=== PATIENT | female | born 1975 | race Caucasian/White ===

== ENCOUNTER 2023-08-25 08:18 | Emergency (ER) | payer OTHER, SELFPAY ==
[2023-08-25 08:29] VITALS: BP 112/60; PULSE 58; RESP 16; TEMP 36.7; O2SAT 99
[2023-08-25 08:30] VITALS: BP 112/60; PULSE 58; RESP 16; TEMP 36.7; O2SAT 99
--- NOTE | 2023-08-25 08:39 | ED.WOUNDLAC ---
HPI - Wound/Laceration General Chief Complaint: Extremity Injury, Lower Stated Complaint: Left Foot Wound Time Seen by Provider: 08/25/23 08:45 Source: patient and RN notes reviewed Mode of arrival: ambulatory Limitations: no limitations History of Present Illness HPI narrative: 47-year-old female presents concern for a puncture wound on Thursday. She reports she tried on a shoe at issues door that had attack in it and punctured her foot. 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 She reports she has had a tetanus vaccination in the past, her last 1 was about 12 years ago. She denies any redness, swelling, pain, drainage from the puncture site. Related Data Home Medications Medication Instructions Recorded Confirmed No Home Medications 08/25/23 08/25/23 Allergies Allergy/AdvReac Type Severity Reaction Status Date / Time Sulfa (Sulfonamide Allergy Unknown Unknown Verified 08/25/23 08:30 Antibiotics) Review of Systems Review of Systems: CONSTITUTIONAL: Denies malaise, chills, sweats, or fever. SKIN: Reports puncture wound to the dorsal aspect of the left foot. Denies any surrounding tenderness, warmth, redness, swelling. MUSCULOSKELETAL: Denies muscle skeletal pain NEUROLOGIC: Denies numbness, weakness All systems reviewed & are unremarkable except as noted in HPI and below PMFSH Family History Family History (Updated 04/27/14 @ 12:29 by DOCTOR UNKNOWN) Mother Patient's mother is Social History Social History Smoking status: Never smoker Alcohol intake: current Comments At time of signature, agree with nursing past medical, surgical, social and family history. There is no relevant family history pertinent to the presenting complaint Exam Narrative: GENERAL: Well-appearing, well-nourished, and in no acute distress. HEAD: Normocephalic, atraumatic. EYES: PERRLA, conjunctivae clear ENT: Mucous membranes moist. NECK: Supple. No lymphadenopathy CHEST: Clear to auscultation. No respiratory distress. HEART: Regular rate and rhythm. SKIN: Warm, dry. Puncture wound noted to the dorsal aspect of left foot without surrounding erythema, induration, tenderness, warmth. No drainage noted NEURO: Alert and oriented x3. PSYCH: Normal mood and affect Course Course Emergency Course: Patient called her route clerk for advice on whether not to get the vaccine and has not her back. 48 hour window for vaccination will be up this afternoon. Discussed risks versus benefits of vaccination with patient has idiopathic thrombocytopenia purpura. Through shared decision making patient decided to get the tetanus vaccine. Patient is aware of, understands and agrees to treatment plan. Anticipatory guidance given. Patient agrees to follow-up as directed and is aware of reasons to seek care at the emergency department. Portions of this record may have been created with voice recognition software Level of Care: Express Care Visit Vital Signs Vital signs: Vital Signs Temperature 98.1 F 08/25/23 08:29 Pulse Rate 58 L 08/25/23 08:29 Respiratory Rate 16 08/25/23 08:29 Blood Pressure 112/60 08/25/23 08:29 Pulse Oximetry 99 08/25/23 08:29 Oxygen Delivery Room Air 08/25/23 08:29 Temperature 98.1 F 08/25/23 08:30 Pulse Rate 58 L 08/25/23 08:30 Respiratory Rate 16 08/25/23 08:30 Blood Pressure 112/60 08/25/23 08:30 Pulse Oximetry 99 08/25/23 08:30 Oxygen Delivery Room Air 08/25/23 08:30 Reviewed. MDM - Wound/Laceration MDM Narrative Medical decision making narrative: Wound explored for foreign body and copious irrigation provided with no evidence of FB. Discussed the potential of retained foreign body with the patient and signs/symptoms that should prompt the patient to immediately go to the ED for reevaluation. The laceration was identified to be [XXX] cm in length and located at [XXX]. The laceration was cleansed with [XXX]
[2023-08-25] MEDS: TETANUS,DIPHTHERIA,AC PERTUSSIS ADULT (0.5 ML) BOOSTRIX IM (09:01)
== END 2023-08-25 09:14 | disposition home or self-care (01) ==
PROVIDERS: Emergency Provider Nurse Practitioner
DX: S91.332A Puncture wound without foreign body, left foot, initial encounter (principal); W26.8XXA Contact with other sharp object(s), not elsewhere classified, initial encounter; Z23 Encounter for immunization
CPT/HCPCS: 90471; 90715; 99212; G0463